=== PATIENT | female | born 1985 | race Caucasian/White ===

== ENCOUNTER → 2018-09-10 | Outpatient (CLI) | payer MEDICAID ==
--- NOTE | 2018-09-10 11:03 | US ---
EXAMINATION TYPE: US abdomen complete DATE OF EXAM: 09/10/2018 COMPARISON: NONE CLINICAL HISTORY: R94.5 ELEV LFTS. Ulcerative colitis overlying bowel gas difficult to evaluate EXAM MEASUREMENTS: Liver Length: 12.0 cm Gallbladder Wall: 0.1 cm CBD: 0.3 cm Spleen: 5.8 cm Right Kidney: 10.5 x 4.2 x 3.7 cm Left Kidney: 10.1 x 4.5 x 4.0 cm Pancreas: Obscured by bowel gas Liver: wnl Gallbladder: wnl Evidence for sonographic Orourke's sign: No CBD: wnl Spleen: wnl Right Kidney: wnl Left Kidney: wnl Upper IVC: wnl Abd Aorta: wnl IMPRESSION: 1. No acute process.
== END | disposition home or self-care (01) ==
LOC: RADUSWWP 10:23
PROVIDERS: ATTEND Internal Medicine Gastroenterology
DX: R79.89 Other specified abnormal findings of blood chemistry (principal)
CPT/HCPCS: 76700

== ENCOUNTER → 2018-09-24 | Outpatient (CLI) | payer MEDICAID ==
[2018-09-24 19:21] LABS: Hepatitis C IgG Antibody Non-Reactive (Non-Reactive)
== END | disposition home or self-care (01) ==
LOC: LABWHC1 14:20
PROVIDERS: ATTEND Internal Medicine Gastroenterology
DX: K51.90 Ulcerative colitis, unspecified, without complications (principal); R74.8 Abnormal levels of other serum enzymes
CPT/HCPCS: 36415; 83516; 86038; 86255; 86704; 86706; 86803; 87340

== ENCOUNTER → 2019-01-12 | Outpatient (CLI) | payer MEDICAID ==
--- NOTE | 2019-01-12 09:49 | MR ---
EXAMINATION TYPE: MR MRCP DATE OF EXAM: 01/12/2019 COMPARISON: Ultrasound 09/10/2018 HISTORY: Elevated liver enzymes, Ulcerative Colitis Standard multiplanar, multisequence MRI departmental protocol Multiplanar, multisequence images of the MRCP were acquired. FINDINGS: The visualized kidneys have a normal appearance. Sub-5 mm upper pole renal cortical cyst is incidenta lly noted. Adrenal glands have a normal morphology. Pancreas has a normal appearance. Gallbladder is mildly distended. There is no significant intrahepatic biliary ductal dilation. Mild h eterogeneity to the liver. Common bile duct measures within normal limits. No filling defects seen. IMPRESSION: 1. There is mild prominence of the gallbladder and cystic duct without evidence of discrete filling d efect. 2. The common bile duct is of normal caliber. 3. Correlate for hepatocellular disease or hepatitis.
== END | disposition home or self-care (01) ==
LOC: RADMRIMAIN 08:06
PROVIDERS: ATTEND Internal Medicine Gastroenterology
DX: K51.90 Ulcerative colitis, unspecified, without complications (principal); R74.8 Abnormal levels of other serum enzymes
CPT/HCPCS: 74181